=== PATIENT | female | born 1960 | race Caucasian/White ===

== ENCOUNTER → 2019-06-25 | Day surgery (SDC) | payer BC ==
[2019-06-23 11:26] LABS: ANION GAP 10.7 mmol/L (8-16); CREATININE, SERUM 1.06 mg/dL (0.57-1.11); POTASSIUM 3.7 mmol/L (3.5-5.1)
[~2019-06-25] MED LIST: ACETAMINOPHEN/CODEINE 300MG - 30MG TAB ONE; ATENOLOL-CHLOR1 EAC1 PO; ATORVASTATIN CA20 MG PO; BACITRACIN 50,000 UNIT VIAL ONE; BUPIVACAINE HCL 0.5% INJ 30 ML VIAL INJ ONE; CLINDAMYCIN 600MG / 50ML 50 ML IV ONE; DEXAMETHASONE SOD PHOS INJ 4 MG/ML VIAL ONE; FENTANYL CITRATE/PF 100MCG/2 ML INJ ONE; KETOROLAC TROMETHAMINE 30 MG/ML VIAL ONE; LIDOCAINE HCL 2% LOCAL INJ 5 ML SDV VIAL INJ ONE; MIDAZOLAM HCL 2 MG/2 ML VIAL ONE; MULTI-VITAMIN1 EACH PO; MUPIROCIN 2% OINT 22 GM TUBE ONE; ONDANSETRON HCL INJ 2MG/ML 2ML 2 MG/ML VIAL ONE; PROPOFOL IV EMULSION 10 MG/ML 20 ML VIAL ONE; SEVOFLURANE INHAL SOLN 250 ML PEN BTL ONE
--- OUTSIDE RECORDS SUMMARY | 2019-06-25 05:35 | XMS REPORT | Clinical Summary ---
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 Active atorvastatin (LIPITOR) 20 Take 1 tablet 90 tablet 1 MG tablet (20 mg total) 9 by mouth daily. Default OP ins 06/25/2018 Discontinued (Reorder) atorvastatin (LIPITOR) 20 Take 1 tablet 90 tablet 1 MG tablet (20 mg total) 8 by mouth daily. 03/11/2019 Discontinued (Reorder) atenolol-chlorthalidone Take 1 tablet 90 tablet 1 (TENORETIC) 50-25 mg per by mouth 8 tablet daily. 03/11/2019 Discontinued (Duplicate order) atenolol-chlorthalidone TAKE 1 TABLET 90 tablet 1 (TENORETIC) 50-25 mg per DAILY 8 tablet 11/19/2018 Discontinued (Reorder) atorvastatin (LIPITOR) 20 TAKE 1 TABLET 90 tablet 1 MG tablet DAILY 8 03/11/2019 Discontinued (Reorder) atorvastatin (LIPITOR) 20 TAKE 1 TABLET 90 tablet 1 MG tablet DAILY 9 03/11/2019 Discontinued (Reorder) atenolol-chlorthalidone Take 1 tablet 30 tablet 0 (TENORETIC) 50-25 mg per by mouth 9 tablet daily. 06/09/2019 metroNIDAZOLE (METROGEL) Apply 60 g 2 1 % gel topically 9 daily for 90 days. Active Problems Problem Noted Date Essential hypertension, benign 03/11/2019 Overview: well controlled doing well with tx, continue and rtc in 6 months History of sleeve gastrectomy 12/19/2017 HLD (hyperlipidemia) 11/27/2011 Benign essential HTN 11/27/2011 History of colonic polyps 11/27/2011 Encounters Care Team Description Date Type Specialty Trey Marinelli MD Right knee pain, unspecified chronicity (Primary Dx); Left knee pain, unspecified chronicity 06/02/2019 Office Visit Orthopedic Surgery Elisabeth Clancy MA 03/17/2019 Refill Family Medicine Senait Rocha NP Mixed hyperlipidemia (Primary Dx); Essential hypertension, benign; Rosacea 03/11/2019 Office Visit Family Medicine Elisabeth Clancy MA Benign essential HTN (Primary Dx); Other hyperlipidemia; History of sleeve gastrectomy 02/24/2019 Orders Only Family Medicine Senait Rocha NP 02/19/2019 Telephone Family Medicine Alex Ross MD 01/15/2019 Refill Family Medicine Alex Ross MD 11/19/2018 Refill Family Medicine Alex Ross MD 06/25/2018 Telephone Family Medicine Alex Ross MD 06/25/2018 Refill Family Medicine after 06/24/2018 Immunizations Name Administration Dates Next Due Zoster 08/29/2016 Family History Medical History Relation Name Comments Breast cancer Mother Relation Name Status Comments Mother Social History Date Tobacco Use Types Packs/Day Years Used Never Smoker Smokeless Tobacco: Never Used Drinks/Week oz/Week Comments Alcohol Use 5 Glasses of wine Yes Sex Assigned at Date Recorded Not on file Industry Job Start Date Occupation Not on file Not on file Not on file Travel End Travel History Travel Start No recent travel history available. Last Filed Vital Signs Reading Time Taken Comments Vital Sign 116/75 03/11/2019 10:07 AM CDT Blood Pressure 63 03/11/2019 10:07 AM CDT Pulse 36.8 C (98.2 F) 03/11/2019 10:07 AM CDT Temperature - - Respiratory Rate 96% 03/11/2019 10:07 AM CDT Oxygen Saturation - - Inhaled Oxygen Concentration 79.4 kg (175 lb) 06/02/2019 4:03 PM CDT Weight 162.6 cm (5' 4") 06/02/2019 4:03 PM CDT Height 30.04 06/02/2019 4:03 PM CDT Body Mass Index Plan of Treatment Care Team Description Date Type [place] [id number] [address] [address] [phone] 09/10/2019 Office Visit Family Medicine Health Maintenance Due Date Last Done Comments CERVICAL CANCER SCREENING 1982 BREAST CANCER SCREENING 2011 COLONOSCOPY SCREENING 2011 SHINGLES VACCINES (#1) 2011 INFLUENZA VACCINE 04/30/2019 Procedures Comments Procedure Name Priority Date/Time Associated Diagnosis XR KNEE 4+ VW RIGHT Routine 06/02/2019 Right knee pain, 4:31 PM CDT unspecified chronicity NC ARTHROCENTESIS Routine 06/02/2019 Right knee pain, ASPIR&/INJ MAJOR JT/BURSA 4:00 PM CDT unspecified chronicity W/O US CBC WITH PLATELET AND Routine 03/09/2019 Benign essential HTN DIFFERENTIAL 12:00 AM CDT Other hyperlipidemia History of sleeve gastrectomy URINALYSIS, AUTOMATED Routine 03/09/2019 Benign essential HTN WITH MICROSCOPY 12:00 AM CDT Other hyperlipidemia History of sleeve gastrectomy BASIC METABOLIC PANEL Routine 03/09/2019 Benign essential HTN 12:00 AM CDT Other hyperlipidemia History of sleeve gastrectomy HEPATIC FUNCTION PANEL Routine 03/09/2019 Benign essential HTN 12:00 AM CDT Other hyperlipidemia History of sleeve gastrectomy LIPID PANEL Routine 03/09/2019 Benign essential HTN 12:00 AM CDT Other hyperlipidemia History of sleeve gastrectomy after 06/24/2018 Results * XR Knee 4+ Vw Right (06/02/2019 4:31 PM CDT) Specimen Narrative Performed At [facility] 4 views of the right knee demonstrate degenerative changes and collapse of the joint space about the medial compartment.On the PA weightbearing view almost complete collapse and [id number] articulation at the medial compartment.Marginal osteophyte also visualized around the medial facet of the retropatellar surface on the axial projection.Otherwise joint space of the anterior and lateral compartments are relatively well-preserved.Or dislocations identified Performing Organization Address City/State/Zipcode Phone Number [facility] [address] [place] [address] * Large Joint Arthrocentesis: knee, R knee (06/02/2019 4:00 PM CDT) Narrative Performed At Trey Marinelli MD 06/03/2019 11:19 AM Large Joint Arthrocentesis: knee, R knee Consent given by: patient Site marked: site marked Timeout: Immediately prior to procedure a time out was called to verify the correct patient, procedure, equipment, customer support advisor and site/side marked as required Supporting Documentation Indications: pain Procedure Details Preparation: Patient was prepped and draped in the usual sterile fashion Ultrasound guided: no Platelet Rich Plasma Used: no PRP Used Location: knee - R knee Right side: Needle size: 22 G Approach: superior Right knee medications administered: 80 mg methylPREDNISolone acetate 40 mg/mL; 3 mL lidocaine 10 mg/mL (1 %) Patient tolerance: patient tolerated the procedure well with no immediate complications * Urinalysis, automated with microscopy (03/09/2019 12:00 AM CDT) Color, UA YELLOW YELLOW [facility] Appearance TURBID (A) CLEAR [facility] Specific 1.027 1.001 - 1.035 [facility] gravity, urine [facility] [place] pH, urine 5.5 5.0 - 8.0 [facility] [place] Glucose, urine NEGATIVE NEGATIVE [facility] Bilirubin, UA NEGATIVE NEGATIVE [facility] [place] Ketones, UA NEGATIVE NEGATIVE [facility] Occult blood, NEGATIVE NEGATIVE [facility] urine [facility] [place] Protein, UA NEGATIVE NEGATIVE [facility] [place] Nitrite, UA NEGATIVE NEGATIVE [facility] [place] Leukocyte NEGATIVE NEGATIVE [facility] esterase, UA [facility] [place] WBC, UA 0-5 < OR=5 /HPF [facility] [place] RBC, UA NONE SEEN < OR=2 /HPF [facility] [place] Squamous 0-5 < OR=5 /HPF [facility] epithelial [facility] cells, UA [place] Bacteria, UA FEW (A) NONE SEEN /HPF [facility] [place] Hyaline casts, NONE SEEN NONE SEEN /LPF [facility] UA [facility] [place] Note: Comment: [facility] This urine was analyzed for DI[facility]NOST[facility] the presence of WBC, [place] RBC, bacteria, casts, and other formed elements. Only those elements seen were reported. Specimen Urine Resulting Agency Comment Performing Organization Information: Site ID: [id number] Name: [facility] Address: [address] [place] [phone] Director: Porsche Christensen Performing Organization Address City/State/[facility] Phone Number [facility] [place] [address] [place] [phone] * CBC with platelet and differential (03/09/2019 12:00 AM CDT) [facility] WBC 5.6 3.8 - 10.8 [facility] Thousand/uL [facility] [place] RBC 4.32 3.80 - 5.10 [facility] Million/uL [facility] [place] HGB 12.8 11.7 - 15.5 g/dL [facility] HCT 38.4 35.0 - 45.0 % [facility] Voltari [place] MCV 88.9 80.0 - 100.0 fL [facility] [place] MCH 29.6 27.0 - 33.0 pg [facility] [place] MCHC 33.3 32.0 - 36.0 g/dL [facility] [place] RDW 12.5 11.0 - 15.0 % [facility] [place] Platelet count 234 140 - 400 [facility] Thousand/uL [facility] [place] MPV 11.3 7.5 - 12.5 fL [facility] [place] Neutrophils, 2,850 1,500 - 7,800 [facility] absolute cells/uL [facility] [place] Lymphocytes, 2,111 850 - 3,900 cells/uL [facility] absolute [facility] [place] Monocytes, 426 200 - 950 cells/uL [facility] absolute [facility] [place] Eosinophils, 151 15 - 500 cells/uL [facility] absolute [facility] [place] Basophils, 62 0 - 200 cells/uL [facility] absolute [facility] [place] Neutrophils 50.9 % [facility] Lymphocytes 37.7 % [facility] [place] Monocytes 7.6 % [facility] [place] Eosinophils 2.7 % [facility] [place] Basophils + RC 1.1 % [facility] [place] Specimen Blood Resulting Agency Comment Performing Organization Information: Site ID: [id number] Name: [facility] Address: [address] [place] [phone] Director: Porsche Christensen Performing Organization Address City/State/Zipcode Phone Number [facility]ST[facility] [place] [place] [address] [place] [phone] * Hepatic function panel (03/09/2019 12:00 AM CDT) [facility] Protein 6.3 6.1 - 8.1 g/dL [facility] Albumin, S 4.3 3.6 - 5.1 g/dL [facility] [place] Globulin, total 2.0 1.9 - 3.7 g/dL [facility] (calc) [facility] [place] Albumin/globuli 2.2 1.0 - 2.5 (calc) [facility] n ratio [facility] [place] Total bilirubin 0.9 0.2 - 1.2 mg/dL [facility] [place] Bilirubin 0.2 < OR=0.2 mg/dL [facility] direct [facility] [place] Bilirubin, 0.7 0.2 - 1.2 mg/dL [facility] indirect (calc) [facility] [place] Alkaline 62 33 - 130 U/L [facility] phosphatase [facility] [place] AST 18 10 - 35 U/L [facility] [place] ALT 19 6 - 29 U/L [facility] [place] Specimen Blood Resulting Agency Comment Performing Organization Information: Site ID: [id number] Name: [facility] Address: [address] [place] [phone] Director: Porsche Christensen Performing Organization Address City/State/Zipcode [place] [address] * Lipid panel (03/09/2019 12:00 AM CDT) Pathologist [facility] Cholesterol, 148 <200 mg/dL [facility] total [facility] HDL cholesterol 66 >50 mg/dL [facility] [place] Triglycerides 96 <150 mg/dL [facility] [place] LDL cholesterol 64 mg/dL (calc) [facility] calculated Comment: [facility] Reference range: <100 [place] Desirable range <100 mg/dL for primary prevention; <70 mg/dL for patients with CHD or diabetic patients with > or=2 CHD risk factors. LDL-C is now calculated using the Cesar calculation, which is a validated novel method providing better accuracy than the Friedewald equation in the estimation of LDL-C. Jerry SS et al. LAST. 2013;310(19): 6934-8144 (http://education.Woisio.UpRace/faq/HDR331) Cholesterol/HDL 2.2 <5.0 (calc) [facility] [place] Non-HDL 82 <130 mg/dL (calc) [facility] cholesterol Comment: DIAGNOST[facility] For patients with diabetes [place] plus 1 major ASCVD risk factor, treating to a non-HDL-C goal of <100 mg/dL (LDL-C of <70 mg/dL) is considered a therapeutic option. Specimen Blood Resulting Agency Comment Performing Organization Information: Site ID: [id number] Name: [facility] Address: [address] [place] [phone] Director: Porsche Christensen Performing Organization Address City/State/Zipcode Phone Number CHRISTY Lovli [facility] [address] [place] [address] * Basic metabolic panel (03/09/2019 12:00 AM CDT) [facility] Glucose 92 65 - 99 mg/dL [facility] Comment: DI[facility]NOST[facility] Fasting [place] reference interval BUN, whole 19 7 - 25 mg/dL [facility] blood [facility] [place] Creatinine 0.99 0.50 - 1.05 mg/dL [facility] Comment: DIAGNOST[facility] For patients >49 years of age, [place] the reference limit for Creatinine is approximately 13% higher for people identified as -Ugandan. EGFR Non-Afr. 63 > OR=60 [facility] [place] mL/min/1.73m2 [facility] EGFR 73 > OR=60 [facility] [place] mL/min/1.73m2 [facility] [place] BUN/creatinine NOT APPLICABLE 6 - 22 (calc) [facility] ratio [facility] [place] Sodium 145 135 - 146 mmol/L [facility] Potassium 3.7 3.5 - 5.3 mmol/L [facility] [place] Chloride 103 98 - 110 mmol/L [facility] [place] CO2 34 (H) 20 - 32 mmol/L [facility] [place] Calcium 9.7 8.6 - 10.4 mg/dL [facility] [place] Specimen Blood Resulting Agency Comment Performing Organization Information: Site ID: [place] Name: [facility] Address: [address] [place] [phone] Director: Porsche Christensen Performing Organization Address City/State/Zipcode Phone Number CHRISTY Lovli [facility] [address] [place] [address] after 06/24/2018 Insurance Type Payer Benefit Subscriber ID Effective Phone Address Plan / Dates Group PPO BCBS BCBS xxxxxxxxxxxx [id number] CHOICE resent PPO/[employer] PPO Advance Directives For more information, please contact: [phone] Patient Lens Inspector Explanation Type Date Recorded Advance Directives, Living Will and Medical Power of Public Information Specialist
[2019-06-25 10:40] VITALS: BP 138/75
--- NOTE | 2019-06-26 13:36 | Operative Report ---
DATE OF PROCEDURE: 06/25/2019 SURGEON: Ryne Carrasquillo MD PREOPERATIVE DIAGNOSES: 1. Right CMC joint osteoarthritis. 2. Subluxation of right thumb metacarpal base. POSTOPERATIVE DIAGNOSES: 1. Right CMC joint osteoarthritis. 2. Subluxation of right thumb metacarpal base. PROCEDURES: 1. Trapeziectomy, right CMC joint. 2. Capsulorrhaphy, right wrist. ANESTHESIA: General. HISTORY: The patient is a 59-year-old [id number] female, who has significant subluxation of the CMC joint and stage IV CMC osteoarthritis. The risks, benefits, and alternatives of treatment were discussed with the patient and she is prepared to undergo the procedure as outlined. PROCEDURE IN DETAIL: The patient was marked preoperatively in the holding area. She was brought to the operating theater and after the induction of adequate general anesthesia, she was prepped and draped in a supine position and a time-out was performed. A longitudinal incision was marked down over the dorsal aspect of the right thumb metacarpal, carried proximally over the CMC joint and then curved ulnarwards. The right upper extremity was exsanguinated and tourniquet was inflated to a pressure of 250 mmHg. The incision was made through the skin and subcutaneous tissues. Venous tributaries were controlled with a bipolar cautery. The incision was deepened through the subcutaneous space and the branches of the radial sensory nerve were identified and retracted and preserved. Note was made that the extreme subluxation of the base of the metacarpal with the APL and EPB tendons quite displaced volarly. The incision was made over the dorsal aspect of the metacarpal through the periosteum and carried proximally. The 1st dorsal compartment was identified and it was transected. It was divided and the APL and EPB tendons are released. At this point, the fluoroscope was brought in and verification of the trapezium was made and at this point, the joint capsule between the base of the metacarpal and the trapezium was incised and the capsular flaps are then elevated off the base of the metacarpal and the trapezium. It was not until the capsular attachments are freed up that the base of the metacarpal can be adequately reduced. Approximately the branch of the radial artery was coursing directly over the area of dissection and it was then ligated between clamps and tied with 4-0 silk sutures. At this point, an osteotome was used to sagittally suction the trapezium in half and verification of the placement of the osteotome was done using the fluoroscope. Once the trapezium has been suctioned sagittally, a rongeur was used to remove the trapezium in a piecemeal fashion. Care was taken to identify the FCR tendon and protect and preserve it throughout its course. Once the trapezium has been resected, the fluoroscope was brought in and verification at complete removal of the osteophytes between the base of the 1st and 2nd metacarpal was verified. At this juncture, the base of the metacarpal was then reduced, so that is abutting against at the base of the 2nd metacarpal and a 0.045 K-wire was driven across the base of the 1st and 2nd metacarpals under direct fluoroscopic control to maintain the reduction. The pin was then cut and bent over external to the skin. At this juncture, the joint space was irrigated with an antibiotic-containing solution and the performance of a capsulorrhaphy was done. The capsular flaps are noted to be of adequate quality and in order to maintain the reduction of the base of the metacarpal, drill holes were placed through the dorsal aspect of the metacarpal using a 0.035 K-wire. At this point, 4-0 FiberWire was used to thread through the holes in the base of the metacarpal and then sutured to the capsular flaps, so that the flaps form a sjoy-swxh-iptyr type repair. Interrupted [id number]-[id number] sutures were used to affect the capsulorrhaphy. Once the capsule has been completely repaired, the thumb was placed through a range of extension and flexion and there was noted to be good gliding and does not appear to be any subluxation of the base. The joint space was infiltrated with 0.5% plain Marcaine and then the wound was irrigated and then closed with 5-0 nylon in an interrupted horizontal mattress fashion and subcutaneous placement of 0.5% plain Marcaine was performed once again for postop analgesia. Bactroban ointment, Xeroform gauze, and sterile dressings are applied. A dorsally-based thumb spica fiberglass splint was fashioned and this was held in place with a loosely wrapped Grant wrap. The tourniquet was deflated. The fingers pinked up nicely. The estimated tourniquet time was approximately 65 minutes. The patient tolerated the procedure well and was brought to recovery room in satisfactory condition and discharged with a postoperative instruction sheet as well as a followup appointment. MD CONNIE Whitlock/SAKSHI /[id number]
== END | disposition home or self-care (01) ==
LOC: OR 05:30
PROVIDERS: ATTEND Plastic Surgery
DX: M18.11 Unilateral primary osteoarthritis of first carpometacarpal joint, right hand (principal); S63.041A Subluxation of carpometacarpal joint of right thumb, initial encounter; I10 Essential (primary) hypertension; R00.1 Bradycardia, unspecified; X58.XXXA Exposure to other specified factors, initial encounter; Z88.0 Allergy status to penicillin; Z88.2 Allergy status to sulfonamides; Z01.810 Encounter for preprocedural cardiovascular examination; Z01.812 Encounter for preprocedural laboratory examination
CPT/HCPCS: 25210; 25320; 36415; 80048; 93005; C1713; J1100; J1885; J2001; J2250; J2405; J2704; J3010